=== PATIENT | female | born 1950 | race African-American/Black ===

== ENCOUNTER 2021-01-22 13:35 | Inpatient (IN) | payer MEDICARE, MEDICAID ==
[~2021-01-22] VITALS: Ht 182.9 cm; Wt 101.6 kg
[~2021-01-22 13:35] MED LIST: AMLO10TA4 PO; ATEN50TA PO; LISI20TA31 PO
[2021-01-22 16:02] VITALS: BP 158/96
[2021-01-22] MEDS ORDERED: GUAIFENESIN 200MG/10ML SUGAR FREE UDC PO PRN (17:30)
[2021-01-22] MEDS ORDERED: DEXTROSE 50% WATER 50ML SYRINGE IV PRN (17:30)
[2021-01-22] MEDS ORDERED: MAGNESIUM/ALUMINUM HYDROXIDE/SIMETHICONE 30ML UDC PO PRN (17:30)
[2021-01-22] MEDS ORDERED: IPRATROPIUM/ALBUTEROL 0.5-3(2.5)MG/3ML NEB HHN PRN (17:30)
[2021-01-22] MEDS ORDERED: CLONIDINE 0.1MG TABLET PO PRN (17:30)
[2021-01-22] MEDS ORDERED: NITROGLYCERIN 0.4MG TABLET SL SL PRN (17:30)
[2021-01-22] MEDS ORDERED: ONDANSETRON HCL 4MG/2ML INJ IV PRN (17:30)
[2021-01-22] MEDS: BLOOD SUGAR DIAGNOSTIC STRIP TEST SCH ×2 (18:00→20:39)
[2021-01-22] MEDS: DOCUSATE SODIUM 100MG CAPSULE PO SCH (19:24)
[2021-01-22] MEDS: INSULIN LISPRO 100 UNITS/ML SUBCUT SCH ×2 (19:30→21:00)
[2021-01-22 20:00] VITALS: BP 166/93
[2021-01-22] MEDS: AMLODIPINE 5MG TABLET PO SCH (20:38)
[2021-01-22] MEDS: ATORVASTATIN CALCIUM 20MG TABLET PO SCH (20:38)
[2021-01-22] MEDS: ENOXAPARIN 30MG/0.3ML SYR SUBCUT SCH (20:38)
[2021-01-22] MEDS: FAMOTIDINE 20MG TABLET PO SCH (20:38)
[2021-01-22] MEDS: HYDRALAZINE HCL 50MG TABLET PO SCH (20:39)
[2021-01-22] MEDS ORDERED: ZOLPIDEM TARTRATE 5MG TABLET PO PRN (21:00)
[2021-01-22 21:40] VITALS: BP 148/94
[2021-01-22] MEDS ORDERED: METO-539 PO (21:47)
[2021-01-22] MEDS ORDERED: METF-414 PO (21:47)
[2021-01-23] MEDS: HYDRALAZINE HCL 50MG TABLET PO SCH ×3 (05:44→21:03)
[2021-01-23] MEDS: BLOOD SUGAR DIAGNOSTIC STRIP TEST SCH ×4 (05:44→20:40)
[2021-01-23] MEDS: INSULIN LISPRO 100 UNITS/ML SUBCUT SCH ×4 (06:30→21:03)
[2021-01-23 07:00] LABS: BASOPHILS % 0.5 % (0.0-2.0); EOSINOPHILS % 0.3 % (0.0-5.0); HEMOGLOBIN. 15.7 g/dL (12.0-16.0); LYMPHOCYTES % 25.3 % (20.0-50.0); MEAN CORPUSCULAR HEMOGLOBIN 28.1 pg (28.0-32.0); MEAN CORPUSCULAR VOLUME 87.4 fL (81.0-99.0); MEAN PLATELET VOLUME 8.4 fl (7.4-10.4); MONOCYTES % 6.5 % (2.0-8.0); NEUTROPHILS % 67.4 % (40.0-76.0); PLATELET 315 x1000/uL (130-400); RED CELL DISTRIBUTION WIDTH 15.1 % (11.6-14.6)
[2021-01-23 07:27] LABS: CHLORIDE 105 mEq/L (98-107)
[2021-01-23 07:40] LABS: TOTAL IRON BINDING CAPACITY 315 ug/dL (250-450)
[2021-01-23 08:13] VITALS: BP 124/80
[2021-01-23] MEDS: LINAGLIPTIN 5MG TABLET PO SCH (08:30)
[2021-01-23] MEDS: ENOXAPARIN 30MG/0.3ML SYR SUBCUT SCH ×2 (08:30→20:40)
[2021-01-23] MEDS: DOCUSATE SODIUM 100MG CAPSULE PO SCH ×2 (08:30→17:32)
[2021-01-23] MEDS: NEBIVOLOL HCL 5 MG TABLET PO SCH (08:30)
[2021-01-23] MEDS: CLOPIDOGREL 75MG TABLET PO SCH (08:31)
[2021-01-23] MEDS: CYANOCOBALAMIN 1000MCG/ML VIAL IM SCH (08:31)
[2021-01-23] MEDS: AMLODIPINE 5MG TABLET PO SCH ×2 (08:31→20:40)
[2021-01-23] MEDS: LOSARTAN POTASSIUM 100 MG TABLET PO SCH (08:42)
[2021-01-23] MEDS: FAMOTIDINE 20MG TABLET PO SCH ×2 (08:42→20:40)
[2021-01-23] MEDS ORDERED: LEVOFLOXACIN 500MG TABLET PO SCH (11:00)
[2021-01-23 20:00] VITALS: BP 157/86
[2021-01-23] MEDS: ATORVASTATIN CALCIUM 20MG TABLET PO SCH (20:39)
[2021-01-23] MEDS: ACETAMINOPHEN 325MG TABLET PO PRN (20:39)
[2021-01-24] MEDS: BLOOD SUGAR DIAGNOSTIC STRIP TEST SCH ×4 (05:48→21:18)
[2021-01-24] MEDS: HYDRALAZINE HCL 50MG TABLET PO SCH ×3 (05:49→21:11)
[2021-01-24] MEDS: INSULIN LISPRO 100 UNITS/ML SUBCUT SCH ×4 (05:49→21:18)
[2021-01-24] MEDS ORDERED: LACTULOSE 20G/30ML UDC PO SCH (06:00)
[2021-01-24 08:00] VITALS: BP 105/65
[2021-01-24] MEDS: CLOPIDOGREL 75MG TABLET PO SCH (08:54)
[2021-01-24] MEDS: NEBIVOLOL HCL 5 MG TABLET PO SCH ×2 (08:54→08:59)
[2021-01-24] MEDS: ENOXAPARIN 30MG/0.3ML SYR SUBCUT SCH ×2 (08:54→21:12)
[2021-01-24] MEDS: CYANOCOBALAMIN 1000MCG/ML VIAL IM SCH (08:54)
[2021-01-24] MEDS: FAMOTIDINE 20MG TABLET PO SCH ×2 (08:54→21:11)
[2021-01-24] MEDS: LINAGLIPTIN 5MG TABLET PO SCH (08:54)
[2021-01-24] MEDS: DOCUSATE SODIUM 100MG CAPSULE PO SCH ×2 (08:54→16:47)
[2021-01-24] MEDS: AMLODIPINE 5MG TABLET PO SCH ×2 (08:59→21:12)
[2021-01-24] MEDS: LOSARTAN POTASSIUM 100 MG TABLET PO SCH (08:59)
[2021-01-24 20:00] VITALS: BP 131/62
[2021-01-24] MEDS: ATORVASTATIN CALCIUM 20MG TABLET PO SCH (21:11)
[2021-01-25] MEDS: HYDRALAZINE HCL 50MG TABLET PO SCH ×3 (05:23→22:00)
[2021-01-25] MEDS: BLOOD SUGAR DIAGNOSTIC STRIP TEST SCH ×4 (06:15→21:03)
[2021-01-25] MEDS: INSULIN LISPRO 100 UNITS/ML SUBCUT SCH ×4 (06:29→21:10)
[2021-01-25 08:00] VITALS: BP 128/66
[2021-01-25] MEDS: DOCUSATE SODIUM 100MG CAPSULE PO SCH ×2 (09:39→16:53)
[2021-01-25] MEDS: NEBIVOLOL HCL 5 MG TABLET PO SCH (09:39)
[2021-01-25] MEDS: CLOPIDOGREL 75MG TABLET PO SCH (09:39)
[2021-01-25] MEDS: LOSARTAN POTASSIUM 100 MG TABLET PO SCH (09:39)
[2021-01-25] MEDS: AMLODIPINE 5MG TABLET PO SCH ×2 (09:39→21:04)
[2021-01-25] MEDS: LINAGLIPTIN 5MG TABLET PO SCH (09:39)
[2021-01-25] MEDS: FAMOTIDINE 20MG TABLET PO SCH ×2 (09:40→21:03)
[2021-01-25] MEDS: ENOXAPARIN 30MG/0.3ML SYR SUBCUT SCH ×2 (09:41→21:04)
[2021-01-25 20:00] VITALS: BP 116/70
[2021-01-25] MEDS: ATORVASTATIN CALCIUM 20MG TABLET PO SCH (21:04)
[2021-01-26] MEDS: HYDRALAZINE HCL 50MG TABLET PO SCH ×3 (06:00→22:00)
[2021-01-26] MEDS: BLOOD SUGAR DIAGNOSTIC STRIP TEST SCH ×4 (06:02→21:00)
[2021-01-26] MEDS: INSULIN LISPRO 100 UNITS/ML SUBCUT SCH ×4 (06:03→21:00)
[2021-01-26 07:05] LABS: BASOPHILS % 0.6 % (0.0-2.0); EOSINOPHILS % 0.5 % (0.0-5.0); HEMATOCRIT. 43.6 % (36.0-48.0); LYMPHOCYTES % 28.3 % (20.0-50.0); MEAN CORPUSCULAR HEMOGLOBIN 27.9 pg (28.0-32.0); MEAN CORPUSCULAR VOLUME 87.1 fL (81.0-99.0); MEAN PLATELET VOLUME 8.2 fl (7.4-10.4); MONOCYTES % 7.9 % (2.0-8.0); NEUTROPHILS % 62.7 % (40.0-76.0); PLATELET 332 x1000/uL (130-400)
[2021-01-26 07:51] LABS: CHLORIDE 107 mEq/L (98-107)
[2021-01-26 08:00] VITALS: BP 137/96
[2021-01-26] MEDS: DOCUSATE SODIUM 100MG CAPSULE PO SCH ×2 (09:35→17:40)
[2021-01-26] MEDS: FAMOTIDINE 20MG TABLET PO SCH ×2 (09:35→22:52)
[2021-01-26] MEDS: ENOXAPARIN 30MG/0.3ML SYR SUBCUT SCH ×2 (09:35→22:51)
[2021-01-26] MEDS: CLOPIDOGREL 75MG TABLET PO SCH (09:35)
[2021-01-26] MEDS: NEBIVOLOL HCL 5 MG TABLET PO SCH (09:36)
[2021-01-26] MEDS: LOSARTAN POTASSIUM 100 MG TABLET PO SCH (09:36)
[2021-01-26] MEDS: LINAGLIPTIN 5MG TABLET PO SCH (09:36)
[2021-01-26] MEDS: AMLODIPINE 5MG TABLET PO SCH ×2 (09:36→22:51)
[2021-01-26 20:00] VITALS: BP 141/87
[2021-01-26] MEDS: ATORVASTATIN CALCIUM 20MG TABLET PO SCH (22:51)
[2021-01-27] MEDS: HYDRALAZINE HCL 50MG TABLET PO SCH ×3 (06:19→21:52)
[2021-01-27] MEDS: BLOOD SUGAR DIAGNOSTIC STRIP TEST SCH ×4 (06:24→21:56)
[2021-01-27] MEDS: INSULIN LISPRO 100 UNITS/ML SUBCUT SCH ×4 (06:24→22:00)
[2021-01-27 08:00] VITALS: BP 133/76
[2021-01-27] MEDS: LINAGLIPTIN 5MG TABLET PO SCH (09:27)
[2021-01-27] MEDS: CLOPIDOGREL 75MG TABLET PO SCH (09:27)
[2021-01-27] MEDS: LOSARTAN POTASSIUM 100 MG TABLET PO SCH (09:27)
[2021-01-27] MEDS: DOCUSATE SODIUM 100MG CAPSULE PO SCH ×2 (09:27→18:17)
[2021-01-27] MEDS: FAMOTIDINE 20MG TABLET PO SCH ×2 (09:27→21:53)
[2021-01-27] MEDS: NEBIVOLOL HCL 5 MG TABLET PO SCH (09:27)
[2021-01-27] MEDS: AMLODIPINE 5MG TABLET PO SCH ×2 (09:28→21:52)
[2021-01-27] MEDS: ENOXAPARIN 30MG/0.3ML SYR SUBCUT SCH ×2 (09:28→21:53)
[2021-01-27] MEDS ORDERED: LACTULOSE 20G/30ML UDC PO NR (17:00)
[2021-01-27 20:00] VITALS: BP 139/91
[2021-01-27] MEDS: POLYETHYLENE GLYCOL 3350 (17GM) 1 DOSE PACK PO SCH (21:00)
[2021-01-27] MEDS: ATORVASTATIN CALCIUM 20MG TABLET PO SCH (21:52)
[2021-01-28] MEDS: HYDRALAZINE HCL 50MG TABLET PO SCH ×3 (06:28→21:00)
[2021-01-28] MEDS: BLOOD SUGAR DIAGNOSTIC STRIP TEST SCH ×4 (06:30→20:34)
[2021-01-28] MEDS: INSULIN LISPRO 100 UNITS/ML SUBCUT SCH ×4 (06:33→21:17)
[2021-01-28 08:00] VITALS: BP 128/81
[2021-01-28] MEDS: NEBIVOLOL HCL 5 MG TABLET PO SCH (09:00)
[2021-01-28] MEDS: AMLODIPINE 5MG TABLET PO SCH ×2 (09:00→20:34)
[2021-01-28] MEDS: DOCUSATE SODIUM 100MG CAPSULE PO SCH ×2 (09:34→17:57)
[2021-01-28] MEDS: LINAGLIPTIN 5MG TABLET PO SCH (09:34)
[2021-01-28] MEDS: FAMOTIDINE 20MG TABLET PO SCH ×2 (09:35→20:34)
[2021-01-28] MEDS: CLOPIDOGREL 75MG TABLET PO SCH (09:35)
[2021-01-28] MEDS: ENOXAPARIN 30MG/0.3ML SYR SUBCUT SCH ×2 (09:35→20:35)
[2021-01-28] MEDS: LOSARTAN POTASSIUM 100 MG TABLET PO SCH (09:40)
[2021-01-28] MEDS: ACETAMINOPHEN 325MG TABLET PO PRN (14:20)
[2021-01-28 20:00] VITALS: BP 146/87
[2021-01-28] MEDS: ATORVASTATIN CALCIUM 20MG TABLET PO SCH (20:34)
[2021-01-28] MEDS: POLYETHYLENE GLYCOL 3350 (17GM) 1 DOSE PACK PO SCH (20:35)
[2021-01-29] MEDS: HYDRALAZINE HCL 50MG TABLET PO SCH ×3 (06:00→22:00)
[2021-01-29] MEDS: BLOOD SUGAR DIAGNOSTIC STRIP TEST SCH ×4 (06:01→19:47)
[2021-01-29] MEDS: INSULIN LISPRO 100 UNITS/ML SUBCUT SCH ×4 (06:02→23:22)
[2021-01-29 07:52] VITALS: BP 138/85
[2021-01-29 09:20] LABS: CHLORIDE 109 mEq/L (98-107)
[2021-01-29 09:21] LABS: BASOPHILS % 0.4 % (0.0-2.0); EOSINOPHILS % 0.4 % (0.0-5.0); HEMATOCRIT. 42.8 % (36.0-48.0); HEMOGLOBIN. 13.7 g/dL (12.0-16.0); LYMPHOCYTES % 25.4 % (20.0-50.0); MEAN CORPUSCULAR HEMOGLOBIN 27.9 pg (28.0-32.0); MEAN CORPUSCULAR VOLUME 86.8 fL (81.0-99.0); MEAN PLATELET VOLUME 8.9 fl (7.4-10.4); MONOCYTES % 6.8 % (2.0-8.0); PLATELET 323 x1000/uL (130-400); RED BLOOD CELL COUNT 4.93 mill/uL (4.2-5.4); RED CELL DISTRIBUTION WIDTH 15.2 % (11.6-14.6)
[2021-01-29] MEDS: FAMOTIDINE 20MG TABLET PO SCH ×2 (09:25→23:02)
[2021-01-29] MEDS: LINAGLIPTIN 5MG TABLET PO SCH (09:25)
[2021-01-29] MEDS: DOCUSATE SODIUM 100MG CAPSULE PO SCH ×2 (09:25→17:53)
[2021-01-29] MEDS: CLOPIDOGREL 75MG TABLET PO SCH (09:25)
[2021-01-29] MEDS: ENOXAPARIN 30MG/0.3ML SYR SUBCUT SCH ×2 (09:26→23:03)
[2021-01-29] MEDS: LOSARTAN POTASSIUM 100 MG TABLET PO SCH (09:27)
[2021-01-29] MEDS: AMLODIPINE 5MG TABLET PO SCH ×2 (09:27→21:00)
[2021-01-29] MEDS: NEBIVOLOL HCL 5 MG TABLET PO SCH (11:09)
[2021-01-29 20:00] VITALS: BP 111/71
[2021-01-29] MEDS ORDERED: SODIUM POLYSTYRENE SULFONATE 15 G/60 ML BOT PO NR (20:00)
[2021-01-29] MEDS: POLYETHYLENE GLYCOL 3350 (17GM) 1 DOSE PACK PO SCH (21:00)
[2021-01-29] MEDS: ATORVASTATIN CALCIUM 20MG TABLET PO SCH (23:02)
[2021-01-30] MEDS: BLOOD SUGAR DIAGNOSTIC STRIP TEST SCH ×4 (05:23→21:00)
[2021-01-30] MEDS: INSULIN LISPRO 100 UNITS/ML SUBCUT SCH ×4 (05:23→21:00)
[2021-01-30] MEDS: HYDRALAZINE HCL 50MG TABLET PO SCH ×3 (05:24→21:00)
[2021-01-30 08:00] VITALS: BP 118/68
[2021-01-30] MEDS: LINAGLIPTIN 5MG TABLET PO SCH (09:18)
[2021-01-30] MEDS: CLOPIDOGREL 75MG TABLET PO SCH (09:18)
[2021-01-30] MEDS: DOCUSATE SODIUM 100MG CAPSULE PO SCH ×2 (09:18→17:10)
[2021-01-30] MEDS: FAMOTIDINE 20MG TABLET PO SCH ×2 (09:18→21:00)
[2021-01-30] MEDS: LOSARTAN POTASSIUM 100 MG TABLET PO SCH (09:22)
[2021-01-30] MEDS: NEBIVOLOL HCL 5 MG TABLET PO SCH (09:22)
[2021-01-30] MEDS: ENOXAPARIN 30MG/0.3ML SYR SUBCUT SCH ×2 (09:37→21:00)
[2021-01-30 10:05] LABS: CHLORIDE 106 mEq/L (98-107)
[2021-01-30] MEDS: AMLODIPINE 5MG TABLET PO SCH ×2 (10:30→21:00)
[2021-01-30 15:10] LABS: 25-HYDROXY VITAMIN D3 32 ng/mL (.)
[2021-01-30 20:00] VITALS: BP 143/93
[2021-01-30] MEDS: ATORVASTATIN CALCIUM 20MG TABLET PO SCH (20:59)
[2021-01-30] MEDS: POLYETHYLENE GLYCOL 3350 (17GM) 1 DOSE PACK PO SCH (20:59)
[2021-01-31] MEDS: BLOOD SUGAR DIAGNOSTIC STRIP TEST SCH ×4 (05:37→21:15)
[2021-01-31] MEDS: INSULIN LISPRO 100 UNITS/ML SUBCUT SCH ×4 (05:37→21:00)
[2021-01-31] MEDS: HYDRALAZINE HCL 50MG TABLET PO SCH ×3 (05:37→22:00)
[2021-01-31 06:46] LABS: BASOPHILS % 1.2 % (0.0-2.0); EOSINOPHILS % 0.5 % (0.0-5.0); HEMOGLOBIN. 13.8 g/dL (12.0-16.0); LYMPHOCYTES % 20.6 % (20.0-50.0); MEAN CORPUSCULAR HEMOGLOBIN 28.1 pg (28.0-32.0); MEAN CORPUSCULAR VOLUME 87.4 fL (81.0-99.0); MEAN PLATELET VOLUME 8.1 fl (7.4-10.4); MONOCYTES % 7.8 % (2.0-8.0); NEUTROPHILS % 69.9 % (40.0-76.0); PLATELET 316 x1000/uL (130-400); RED BLOOD CELL COUNT 4.92 mill/uL (4.2-5.4); RED CELL DISTRIBUTION WIDTH 15.2 % (11.6-14.6)
[2021-01-31 07:20] LABS: CHLORIDE 108 mEq/L (98-107)
[2021-01-31 08:00] VITALS: BP 134/80
[2021-01-31] MEDS: FAMOTIDINE 20MG TABLET PO SCH ×2 (08:40→21:14)
[2021-01-31] MEDS: LINAGLIPTIN 5MG TABLET PO SCH (08:40)
[2021-01-31] MEDS: DOCUSATE SODIUM 100MG CAPSULE PO SCH ×2 (08:40→17:53)
[2021-01-31] MEDS: LOSARTAN POTASSIUM 100 MG TABLET PO SCH (08:40)
[2021-01-31] MEDS: CLOPIDOGREL 75MG TABLET PO SCH (08:40)
[2021-01-31] MEDS: AMLODIPINE 5MG TABLET PO SCH ×2 (08:57→21:15)
[2021-01-31] MEDS: NEBIVOLOL HCL 5 MG TABLET PO SCH (08:58)
[2021-01-31] MEDS: ENOXAPARIN 30MG/0.3ML SYR SUBCUT SCH ×2 (08:59→21:14)
[2021-01-31 20:00] VITALS: BP 132/90
[2021-01-31] MEDS: POLYETHYLENE GLYCOL 3350 (17GM) 1 DOSE PACK PO SCH (21:14)
[2021-01-31] MEDS: ATORVASTATIN CALCIUM 20MG TABLET PO SCH (21:14)
[2021-02-01] MEDS: BLOOD SUGAR DIAGNOSTIC STRIP TEST SCH ×4 (06:22→21:50)
[2021-02-01] MEDS: HYDRALAZINE HCL 50MG TABLET PO SCH ×3 (06:22→22:00)
[2021-02-01] MEDS: INSULIN LISPRO 100 UNITS/ML SUBCUT SCH ×3 (06:22→21:00)
[2021-02-01 08:00] VITALS: BP 148/87
[2021-02-01] MEDS: NEBIVOLOL HCL 5 MG TABLET PO SCH (08:56)
[2021-02-01] MEDS: DOCUSATE SODIUM 100MG CAPSULE PO SCH ×2 (08:57→17:11)
[2021-02-01] MEDS: AMLODIPINE 5MG TABLET PO SCH ×2 (08:57→21:52)
[2021-02-01] MEDS: FAMOTIDINE 20MG TABLET PO SCH ×2 (08:59→21:52)
[2021-02-01] MEDS: CLOPIDOGREL 75MG TABLET PO SCH (08:59)
[2021-02-01] MEDS: LOSARTAN POTASSIUM 100 MG TABLET PO SCH (08:59)
[2021-02-01] MEDS: ENOXAPARIN 30MG/0.3ML SYR SUBCUT SCH ×2 (09:00→21:53)
[2021-02-01] MEDS: LINAGLIPTIN 5MG TABLET PO SCH (09:00)
[2021-02-01 20:00] VITALS: BP 138/84
[2021-02-01] MEDS: POLYETHYLENE GLYCOL 3350 (17GM) 1 DOSE PACK PO SCH (21:51)
[2021-02-01] MEDS: ATORVASTATIN CALCIUM 20MG TABLET PO SCH (21:51)
[2021-02-02] MEDS: BLOOD SUGAR DIAGNOSTIC STRIP TEST SCH ×3 (06:33→20:22)
[2021-02-02] MEDS: INSULIN LISPRO 100 UNITS/ML SUBCUT SCH ×4 (06:33→20:23)
[2021-02-02] MEDS: HYDRALAZINE HCL 50MG TABLET PO SCH ×3 (06:35→21:53)
[2021-02-02 08:00] VITALS: BP 148/88
[2021-02-02] MEDS: DOCUSATE SODIUM 100MG CAPSULE PO SCH ×2 (09:00→17:26)
[2021-02-02] MEDS: NEBIVOLOL HCL 5 MG TABLET PO SCH (10:15)
[2021-02-02] MEDS: FAMOTIDINE 20MG TABLET PO SCH ×2 (10:16→21:53)
[2021-02-02] MEDS: CLOPIDOGREL 75MG TABLET PO SCH (10:16)
[2021-02-02] MEDS: LOSARTAN POTASSIUM 100 MG TABLET PO SCH (10:16)
[2021-02-02] MEDS: AMLODIPINE 5MG TABLET PO SCH ×2 (10:16→21:53)
[2021-02-02] MEDS: LINAGLIPTIN 5MG TABLET PO SCH (10:16)
[2021-02-02] MEDS: ENOXAPARIN 30MG/0.3ML SYR SUBCUT SCH ×2 (10:17→21:53)
[2021-02-02 20:00] VITALS: BP 136/81
[2021-02-02] MEDS: POLYETHYLENE GLYCOL 3350 (17GM) 1 DOSE PACK PO SCH ×2 (21:00→21:53)
[2021-02-02] MEDS: ATORVASTATIN CALCIUM 20MG TABLET PO SCH (21:53)
[2021-02-03] MEDS: HYDRALAZINE HCL 50MG TABLET PO SCH ×3 (05:38→22:00)
[2021-02-03] MEDS: BLOOD SUGAR DIAGNOSTIC STRIP TEST SCH ×4 (05:38→21:00)
[2021-02-03 07:00] VITALS: BP 121/77
[2021-02-03] MEDS: DOCUSATE SODIUM 100MG CAPSULE PO SCH ×2 (09:00→17:00)
[2021-02-03] MEDS: INSULIN LISPRO 100 UNITS/ML SUBCUT SCH ×4 (09:00→22:13)
[2021-02-03] MEDS: LOSARTAN POTASSIUM 100 MG TABLET PO SCH (09:35)
[2021-02-03] MEDS: CLOPIDOGREL 75MG TABLET PO SCH (09:35)
[2021-02-03] MEDS: FAMOTIDINE 20MG TABLET PO SCH ×2 (09:35→22:08)
[2021-02-03] MEDS: ENOXAPARIN 30MG/0.3ML SYR SUBCUT SCH ×2 (09:35→22:08)
[2021-02-03] MEDS: AMLODIPINE 5MG TABLET PO SCH ×2 (09:36→22:08)
[2021-02-03] MEDS: NEBIVOLOL HCL 5 MG TABLET PO SCH (09:37)
[2021-02-03] MEDS: LINAGLIPTIN 5MG TABLET PO SCH (10:32)
[2021-02-03 20:00] VITALS: BP 123/75
[2021-02-03] MEDS: POLYETHYLENE GLYCOL 3350 (17GM) 1 DOSE PACK PO SCH (22:07)
[2021-02-03] MEDS: ATORVASTATIN CALCIUM 20MG TABLET PO SCH (22:08)
[2021-02-04] MEDS: BLOOD SUGAR DIAGNOSTIC STRIP TEST SCH ×4 (06:30→21:00)
[2021-02-04] MEDS: INSULIN LISPRO 100 UNITS/ML SUBCUT SCH ×4 (06:30→22:08)
[2021-02-04] MEDS: HYDRALAZINE HCL 50MG TABLET PO SCH ×3 (06:32→22:00)
[2021-02-04] MEDS: NEBIVOLOL HCL 5 MG TABLET PO SCH (09:49)
[2021-02-04] MEDS: DOCUSATE SODIUM 100MG CAPSULE PO SCH ×2 (09:49→16:25)
[2021-02-04] MEDS: FAMOTIDINE 20MG TABLET PO SCH ×2 (09:50→22:03)
[2021-02-04] MEDS: CLOPIDOGREL 75MG TABLET PO SCH (09:50)
[2021-02-04] MEDS: LINAGLIPTIN 5MG TABLET PO SCH (09:50)
[2021-02-04] MEDS: LOSARTAN POTASSIUM 100 MG TABLET PO SCH (09:50)
[2021-02-04] MEDS: AMLODIPINE 5MG TABLET PO SCH ×2 (09:50→22:03)
[2021-02-04] MEDS: ENOXAPARIN 30MG/0.3ML SYR SUBCUT SCH ×2 (09:51→22:02)
[2021-02-04] MEDS: ACETAMINOPHEN 325MG TABLET PO PRN (09:52)
[2021-02-04 20:00] VITALS: BP 123/75
[2021-02-04] MEDS: POLYETHYLENE GLYCOL 3350 (17GM) 1 DOSE PACK PO SCH (21:00)
[2021-02-04] MEDS: ATORVASTATIN CALCIUM 20MG TABLET PO SCH (22:03)
[2021-02-05] MEDS: BLOOD SUGAR DIAGNOSTIC STRIP TEST SCH ×4 (06:23→21:34)
[2021-02-05] MEDS: INSULIN LISPRO 100 UNITS/ML SUBCUT SCH ×4 (06:24→21:00)
[2021-02-05] MEDS: HYDRALAZINE HCL 50MG TABLET PO SCH ×3 (06:25→21:34)
[2021-02-05 08:00] VITALS: BP 124/73
[2021-02-05 08:48] LABS: BASOPHILS % 0.6 % (0.0-2.0); EOSINOPHILS % 0.6 % (0.0-5.0); HEMATOCRIT. 43.4 % (36.0-48.0); HEMOGLOBIN. 14.2 g/dL (12.0-16.0); LYMPHOCYTES % 19.9 % (20.0-50.0); MEAN CORPUSCULAR HEMOGLOBIN 28.1 pg (28.0-32.0); MEAN CORPUSCULAR VOLUME 86.2 fL (81.0-99.0); MEAN PLATELET VOLUME 8.7 fl (7.4-10.4); MONOCYTES % 7.5 % (2.0-8.0); NEUTROPHILS % 71.4 % (40.0-76.0); PLATELET 324 x1000/uL (130-400); RED BLOOD CELL COUNT 5.04 mill/uL (4.2-5.4); RED CELL DISTRIBUTION WIDTH 14.5 % (11.6-14.6)
[2021-02-05] MEDS: DOCUSATE SODIUM 100MG CAPSULE PO SCH ×2 (09:00→17:00)
[2021-02-05] MEDS: CLOPIDOGREL 75MG TABLET PO SCH (09:02)
[2021-02-05] MEDS: LOSARTAN POTASSIUM 100 MG TABLET PO SCH (09:02)
[2021-02-05] MEDS: LINAGLIPTIN 5MG TABLET PO SCH (09:02)
[2021-02-05] MEDS: NEBIVOLOL HCL 5 MG TABLET PO SCH (09:02)
[2021-02-05] MEDS: AMLODIPINE 5MG TABLET PO SCH ×2 (09:03→21:33)
[2021-02-05] MEDS: FAMOTIDINE 20MG TABLET PO SCH ×2 (09:03→21:33)
[2021-02-05] MEDS: ENOXAPARIN 30MG/0.3ML SYR SUBCUT SCH ×2 (09:04→21:34)
[2021-02-05 20:00] VITALS: BP 128/71
[2021-02-05] MEDS: POLYETHYLENE GLYCOL 3350 (17GM) 1 DOSE PACK PO SCH (21:00)
[2021-02-05] MEDS: ATORVASTATIN CALCIUM 20MG TABLET PO SCH (21:32)
[2021-02-06] MEDS: HYDRALAZINE HCL 50MG TABLET PO SCH ×2 (05:48→14:52)
[2021-02-06] MEDS: BLOOD SUGAR DIAGNOSTIC STRIP TEST SCH ×2 (05:49→11:15)
[2021-02-06] MEDS: INSULIN LISPRO 100 UNITS/ML SUBCUT SCH ×2 (05:50→13:00)
[2021-02-06 08:00] VITALS: BP 127/77
[2021-02-06] MEDS: LINAGLIPTIN 5MG TABLET PO SCH (10:21)
[2021-02-06] MEDS: FAMOTIDINE 20MG TABLET PO SCH (10:21)
[2021-02-06] MEDS: AMLODIPINE 5MG TABLET PO SCH (10:21)
[2021-02-06] MEDS: LOSARTAN POTASSIUM 100 MG TABLET PO SCH (10:21)
[2021-02-06] MEDS: DOCUSATE SODIUM 100MG CAPSULE PO SCH (10:21)
[2021-02-06] MEDS: CLOPIDOGREL 75MG TABLET PO SCH (10:21)
[2021-02-06] MEDS: NEBIVOLOL HCL 5 MG TABLET PO SCH (10:22)
[2021-02-06 12:06] VITALS: BP 128/85
[2021-02-06] MEDS ORDERED: LOSA100T3 PO (13:26)
[2021-02-06] MEDS ORDERED: CLOP-31 MT (13:26)
[2021-02-06] MEDS ORDERED: NEBI5TAB3 PO (13:28)
[2021-02-06] MEDS ORDERED: FAMO-135 MT (13:30)
[2021-02-06] MEDS ORDERED: AMLO5TAB4 PO (13:32)
[2021-02-06] MEDS ORDERED: HYDR-4135 PO (13:32)
[2021-02-06] MEDS ORDERED: LINA5TAB PO (13:33)
== END 2021-02-06 15:22 | disposition home health service (06) | DRG 56 ==
PROVIDERS: ADMIT Physical Medicine & Rehabilitation Spinal Cord Injury Medicine; ATTEND Internal Medicine
DX: I69.351 Hemiplegia and hemiparesis following cerebral infarction affecting right dominant side (principal); I63.81 Other cerebral infarction due to occlusion or stenosis of small artery; N39.0 Urinary tract infection, site not specified; E11.9 Type 2 diabetes mellitus without complications; E53.8 Deficiency of other specified B group vitamins; E66.9 Obesity, unspecified; E78.00 Pure hypercholesterolemia, unspecified; E78.5 Hyperlipidemia, unspecified; H70.92 Unspecified mastoiditis, left ear; J44.9 Chronic obstructive pulmonary disease, unspecified; M17.11 Unilateral primary osteoarthritis, right knee; R53.81 Other malaise; E87.5 Hyperkalemia; E55.9 Vitamin D deficiency, unspecified; I11.9 Hypertensive heart disease without heart failure; F39 Unspecified mood [affective] disorder; Z79.02 Long term (current) use of antithrombotics/antiplatelets; Z82.49 Family history of ischemic heart disease and other diseases of the circulatory system; Z87.891 Personal history of nicotine dependence; Z98.51 Tubal ligation status; Z79.899 Other long term (current) drug therapy; Z68.30 Body mass index [BMI] 30.0-30.9, adult
CPT/HCPCS: 36415; 76770; 80048; 80053; 82306; 82728; 82962; 83540; 83550; 84134; 84443; 85025; 92523; 92610; 93970; 97110; 97112; 97116; 97162; 97166; 97530; 97535; J1650; J1815; J3420

== ENCOUNTER 2024-10-09 12:06 | Inpatient (IN) | payer MEDICARE, MEDICAID ==
[~2024-10-09] VITALS: Ht 198.1 cm; Wt 104.3 kg
[~2024-10-09 12:06] MED LIST changes: -AMLO10TA4 PO; +AMLO5TAB5 PO; +ASPI-1406 PO; -ATEN50TA PO; +ATOR20TA PO; +CLOP-31 MT; +FAMO-135 MT; +HYDR50TA40 PO; +LINA5TAB PO; -LISI20TA31 PO; +LOSA-415 PO; +METF-414 PO; +NEBI5TAB9 PO
[2024-10-09] MEDS: ALBUTEROL (0.083%) 2.5MG/3ML NEB HHN SCH (13:02)
[2024-10-09] MEDS: IPRATROPIUM BROMIDE (0.02%) 0.5MG/2.5ML NEB HHN STA (13:04)
[2024-10-09] MEDS: PREDNISONE 20MG TABLET PO STA (13:08)
[2024-10-09 13:19] LABS: BASOPHILS % 0.5 % (0.0-2.0); EOSINOPHILS % 0.1 % (0.0-5.0); HEMATOCRIT. 44.5 % (36.0-48.0); HEMOGLOBIN. 13.9 g/dL (12.0-16.0); LYMPHOCYTES % 28.1 % (20.0-50.0); MEAN PLATELET VOLUME 8.2 fl (7.4-10.4); MONOCYTES % 6.2 % (2.0-8.0); NEUTROPHILS % 65.1 % (40.0-76.0); PLATELET 354 x1000/uL (130-400); RED BLOOD CELL COUNT 5.21 mill/uL (4.2-5.4); RED CELL DISTRIBUTION WIDTH 15.2 % (11.6-14.6)
[2024-10-09 13:29] LABS: INR 1.0
[2024-10-09 13:32] VITALS: PULSE 105; RESP 16; O2SAT 98
[2024-10-09 13:38] LABS: CREATININE 1.1 mg/dL (0.6-1.0)
[2024-10-09 13:39] LABS: TROPONIN I HIGH SENSITIVITY 28 ng/L (3.0-34); UREA NITROGEN BLOOD 14 mg/dL (9-23)
[2024-10-09 13:45] LABS: LACTIC ACID 5.2 mmol/L (0.4-2.0)
[2024-10-09 14:15] VITALS: PULSE 106; RESP 16; O2SAT 98
[2024-10-09] MEDS ORDERED: GUAIFENESIN 200MG/10ML SUGAR FREE UDC PO PRN (14:45)
[2024-10-09] MEDS ORDERED: ACETAMINOPHEN 325MG TABLET PO PRN ×2 (14:45)
[2024-10-09] MEDS ORDERED: MAGNESIUM/ALUMINUM HYDROXIDE/SIMETHICONE 30ML UDC PO PRN (14:45)
[2024-10-09] MEDS ORDERED: DEXTROSE 50% WATER 50ML SYRINGE IV PRN (14:45)
[2024-10-09] MEDS ORDERED: ONDANSETRON HCL 4MG/2ML INJ IV PRN (14:45)
[2024-10-09] MEDS ORDERED: IPRATROPIUM/ALBUTEROL 0.5-3(2.5)MG/3ML NEB HHN PRN (14:45)
[2024-10-09] MEDS ORDERED: DOCUSATE SODIUM 100MG CAPSULE PO PRN (14:45)
[2024-10-09 15:38] VITALS: BP 149/92; PULSE 114; RESP 22; TEMP 36.5
[2024-10-09 16:48] VITALS: BP 149/92; PULSE 114; RESP 22; TEMP 36.5; O2SAT 100
[2024-10-09] MEDS: BLOOD SUGAR DIAGNOSTIC STRIP TEST SCH (17:12)
[2024-10-09] MEDS: INSULIN LISPRO 100 UNITS/ML SUBCUT SCH (17:17)
[2024-10-09] MEDS: ENOXAPARIN 40MG/0.4ML SYR SUBCUT SCH (17:20)
[2024-10-09] MEDS: FUROSEMIDE 40MG/4ML VIAL IV SCH (17:21)
[2024-10-09] MEDS: ASPIRIN 81MG TABLET PO SCH (17:21)
[2024-10-09 20:51] VITALS: BP 127/85; PULSE 117; RESP 16; TEMP 36.2; O2SAT 100
[2024-10-09] MEDS: HYDRALAZINE HCL 50MG TABLET PO SCH (21:11)
[2024-10-09] MEDS: INSULIN GLARGINE 100 UNITS/ML SUBCUT SCH (21:13)
[2024-10-09] MEDS: SODIUM CHLORIDE 0.9% 500 ML IV ONE (21:17)
[2024-10-10 00:26] LABS: INFLUENZA TYPE A Presumptive Negative (Pres. Neg.); INFLUENZA TYPE B Presumptive Negative (Pres. Neg.)
[2024-10-10 00:27] LABS: RESPIRATORY SYNCYTIAL VIRUS Not Detected (Not Detectd)
[2024-10-10 00:45] VITALS: BP 117/77; PULSE 99; RESP 16; TEMP 36.2; O2SAT 99
[2024-10-10 01:54] LABS: *AMPHETAMINES SCREEN URINE NEGATIVE (NEGATIVE); *BARBITURATES SCREEN URINE NEGATIVE (NEGATIVE); *BENZODIAZEPINES SCREEN URINE NEGATIVE (NEGATIVE); *COCAINE SCREEN URINE NEGATIVE (NEGATIVE); CANNABINOID URINE SCREEN NEGATIVE (NEGATIVE); METHADONE URINE SCREEN NEGATIVE (NEGATIVE); OPIATES URINE SCREEN NEGATIVE (NEGATIVE); PHENCYCLIDINE URINE SCREEN NEGATIVE (NEGATIVE)
[2024-10-10 01:55] LABS: ECSTASY MDMA SCREEN URINE NEGATIVE (NEGATIVE)
[2024-10-10 04:00] VITALS: BP 128/83; PULSE 91; RESP 19; TEMP 36.2; O2SAT 99
[2024-10-10 07:59] LABS: BASOPHILS % 0.1 % (0.0-2.0); EOSINOPHILS % 0.0 % (0.0-5.0); HEMATOCRIT. 42.9 % (36.0-48.0); HEMOGLOBIN. 13.7 g/dL (12.0-16.0); LYMPHOCYTES % 15.6 % (20.0-50.0); MEAN PLATELET VOLUME 8.6 fl (7.4-10.4); MONOCYTES % 5.8 % (2.0-8.0); NEUTROPHILS % 78.5 % (40.0-76.0); PLATELET 313 x1000/uL (130-400); RED BLOOD CELL COUNT 5.09 mill/uL (4.2-5.4); RED CELL DISTRIBUTION WIDTH 15.3 % (11.6-14.6)
[2024-10-10 08:00] VITALS: BP 129/83; PULSE 92; RESP 18; TEMP 36.5; O2SAT 100
[2024-10-10 08:15] LABS: CREATININE 1.1 mg/dL (0.6-1.0); TRIGLYCERIDE 136.0 mg/dL (0-150); UREA NITROGEN BLOOD 17.0 mg/dL (9-23)
[2024-10-10 08:16] LABS: LDL CHOLESTEROL 106.0 mg/dL (5-100); T4 FREE 1.36 ng/dL (0.89-1.76)
[2024-10-10] MEDS: METHYLPREDNISOLONE SOD SUCC 40MG/ML (ACT-O-VIAL) IV SCH ×2 (10:10→20:40)
[2024-10-10] MEDS ORDERED: CLOP75TA33 PO (10:30)
[2024-10-10 12:00] VITALS: BP 121/77; PULSE 94; RESP 18; TEMP 36.1; O2SAT 99
[2024-10-10] MEDS: CLOPIDOGREL 75MG TABLET PO SCH (13:48)
[2024-10-10 16:00] VITALS: BP 124/78; PULSE 110; RESP 18; TEMP 36.2; O2SAT 99
[2024-10-10 20:00] VITALS: BP 132/89; PULSE 100; RESP 16; TEMP 36.2; O2SAT 97
[2024-10-10] MEDS: GABAPENTIN 100MG CAPSULE PO SCH (21:59)
[2024-10-10] MEDS: FAMOTIDINE 20MG TABLET PO SCH (21:59)
[2024-10-10] MEDS: ATORVASTATIN CALCIUM 20MG TABLET PO SCH (21:59)
[2024-10-11 04:00] VITALS: BP 129/78; PULSE 101; RESP 16; TEMP 36.2; O2SAT 98
[2024-10-11 07:38] LABS: BASOPHILS % 0.1 % (0.0-2.0); EOSINOPHILS % 0.0 % (0.0-5.0); HEMATOCRIT. 44.1 % (36.0-48.0); HEMOGLOBIN. 14.2 g/dL (12.0-16.0); LYMPHOCYTES % 7.7 % (20.0-50.0); MEAN PLATELET VOLUME 8.9 fl (7.4-10.4); MONOCYTES % 2.6 % (2.0-8.0); NEUTROPHILS % 89.6 % (40.0-76.0); PLATELET 334 x1000/uL (130-400); RED BLOOD CELL COUNT 5.22 mill/uL (4.2-5.4); RED CELL DISTRIBUTION WIDTH 15.4 % (11.6-14.6)
[2024-10-11 07:55] LABS: CREATININE 1.1 mg/dL (0.6-1.0); UREA NITROGEN BLOOD 23 mg/dL (9-23)
[2024-10-11 08:00] VITALS: BP 131/87; PULSE 98; RESP 20; TEMP 36.1; O2SAT 98
[2024-10-11 08:26] LABS: TROPONIN I HIGH SENSITIVITY 1518 ng/L (3.0-34)
[2024-10-11] MEDS: POTASSIUM CHLORIDE 10MEQ TABLET SR PO SCH (08:50)
[2024-10-11] MEDS: ENOXAPARIN 100MG/ML SYR SUBCUT SCH (08:51)
[2024-10-11 12:00] VITALS: BP 128/81; PULSE 108; RESP 20; TEMP 36.6; O2SAT 100
[2024-10-11 16:00] VITALS: BP 121/74; PULSE 99; RESP 18; TEMP 36.6; O2SAT 99
[2024-10-11 20:00] VITALS: BP 126/79; PULSE 98; RESP 18; TEMP 36.4; O2SAT 100
[2024-10-11] MEDS: ATORVASTATIN CALCIUM 40MG TABLET PO SCH (20:31)
[2024-10-12] VITALS: BP 114/76; PULSE 99; RESP 18; TEMP 36.6; O2SAT 98
[2024-10-12 04:00] VITALS: BP 124/87; PULSE 104; RESP 20; TEMP 36.4; O2SAT 97
[2024-10-12 08:11] VITALS: BP 138/88; PULSE 101; RESP 17; TEMP 36.4; O2SAT 99
[2024-10-12 08:13] LABS: BASOPHILS % 0.0 % (0.0-2.0); EOSINOPHILS % 0.0 % (0.0-5.0); HEMATOCRIT. 43.4 % (36.0-48.0); HEMOGLOBIN. 14.1 g/dL (12.0-16.0); LYMPHOCYTES % 9.7 % (20.0-50.0); MEAN PLATELET VOLUME 8.4 fl (7.4-10.4); MONOCYTES % 3.2 % (2.0-8.0); NEUTROPHILS % 87.1 % (40.0-76.0); PLATELET 340 x1000/uL (130-400); RED BLOOD CELL COUNT 5.15 mill/uL (4.2-5.4); RED CELL DISTRIBUTION WIDTH 15.3 % (11.6-14.6)
[2024-10-12 08:58] LABS: CREATININE 1.3 mg/dL (0.6-1.0)
[2024-10-12 09:00] LABS: UREA NITROGEN BLOOD 29.0 mg/dL (9-23)
[2024-10-12 09:22] LABS: TROPONIN I HIGH SENSITIVITY 975.0 ng/L (3.0-34)
[2024-10-12] MEDS: IPRATROPIUM/ALBUTEROL 0.5-3(2.5)MG/3ML NEB HHN SCH (10:00)
[2024-10-12] MEDS: SODIUM CHLORIDE 0.9% 500 ML IV ONE (11:30)
[2024-10-12 12:00] VITALS: BP 122/78; PULSE 96; RESP 16; TEMP 36.7; O2SAT 96
[2024-10-12] MEDS ORDERED: FURO-151 MT (12:47)
[2024-10-12] MEDS ORDERED: ALBU18HF2 IH (12:47)
[2024-10-12] MEDS ORDERED: TIOT4MIS2 IH (12:47)
[2024-10-12 14:36] VITALS: BP 146/86; PULSE 96; TEMP 98.1; O2SAT 99
[2024-10-12 16:14] VITALS: BP 144/86; PULSE 91; RESP 18; TEMP 36.5; O2SAT 99
[2024-10-12] MEDS: IOHEXOL-350 100 ML BOTTLE ONE (16:17)
[2024-10-12] MEDS ORDERED: ATOR40TA70 MT ×2 (17:05→17:22)
== END 2024-10-12 16:50 | disposition home or self-care (01) | DRG 189 ==
LOC: ER 12:06 → 7WST 14:14 → EDBEDREQTM 14:15 → EDBEDREQ 14:15 → ENRESERV 14:22
PROVIDERS: ADMIT Internal Medicine; ATTEND Internal Medicine
DX: J96.01 Acute respiratory failure with hypoxia (principal); I21.A1 Myocardial infarction type 2; J44.1 Chronic obstructive pulmonary disease with (acute) exacerbation; E87.20 Acidosis, unspecified; I11.0 Hypertensive heart disease with heart failure; I50.9 Heart failure, unspecified; Z20.822 Contact with and (suspected) exposure to COVID-19; E11.9 Type 2 diabetes mellitus without complications; T38.0X5A Adverse effect of glucocorticoids and synthetic analogues, initial encounter; E05.90 Thyrotoxicosis, unspecified without thyrotoxic crisis or storm; G47.33 Obstructive sleep apnea (adult) (pediatric); E78.00 Pure hypercholesterolemia, unspecified; Z87.891 Personal history of nicotine dependence; Z55.6 Problems related to health literacy; Z79.02 Long term (current) use of antithrombotics/antiplatelets; Z79.4 Long term (current) use of insulin; Z79.82 Long term (current) use of aspirin; Z79.84 Long term (current) use of oral hypoglycemic drugs; Z79.899 Other long term (current) drug therapy; Z82.49 Family history of ischemic heart disease and other diseases of the circulatory system; Y92.89 Other specified places as the place of occurrence of the external cause
CPT/HCPCS: 36415; 71045; 71275; 80048; 80061; 80305; 82040; 82962; 83605; 83735; 83880; 84145; 84439; 84443; 84484; 85025; 85379; 87420; 87426; 87804; 93005; 93970; 94070; 94640; 94664; 99291; A4606; J1650; J1815; J1940; J2919; J7512; Q9967